=== PATIENT | male | born 1995 | race Caucasian/White ===

== ENCOUNTER 2024-02-23 13:03 | Emergency (ER) | payer SELFPAY ==
[2024-02-23 13:07] VITALS: BP 141/83; PULSE 91; RESP 18; TEMP 36.8; O2SAT 100
--- NOTE | 2024-02-23 13:13 | PC.NURSE ---
To intake desk and states he just found out his insurance doesn't cover this hospital so he is going to another facility. Ambulatory out of dept with steady gait.
== END 2024-02-23 13:41 | disposition left against medical advice (07) ==
LOC: ANHED 13:27
DX: R11.2 Nausea with vomiting, unspecified (principal)
CPT/HCPCS: 99199